=== PATIENT | male | born 1995 | race Caucasian/White ===

== ENCOUNTER 2018-04-25 16:30 | Observation (INO) | payer BC ==
--- NOTE | 2018-08-15 10:14 | PDHPUP ---
History & Physical Update H&P update statement: This history and physical update is based on an assessment of the patient which was completed after admission or registration (within 24 hours), but prior to the surgery/procedure. H&P update: H&P reviewed & patient examined, no change in patient's condition since H&P completed
[2018-08-16] MEDS ORDERED: BACITRACIN ZINC 0.5 OZ OINTTUBE TP ONE (07:44)
[2018-08-16] MEDS ORDERED: BUPIVACAINE 0.25% 30 ML SDV ONE (07:44)
[2018-08-16] MEDS ORDERED: LIDO/EPI 1% **Not for Epidural 20 ML MDV ONE (07:45)
[2018-08-16] MEDS ORDERED: OXYMETAZOLINE 30 ML NASAL SPRAY ONE (07:45)
[2018-08-16] MEDS ORDERED: ceFAZolin 2 GM/DEXTROSE 100 ML IV ONE (07:53)
[2018-08-16] MEDS ORDERED: DEXAMETHASONE 10 MG/ML VIAL IVP ONE ×2 (07:53→08:00)
[2018-08-16] MEDS ORDERED: LIDOCAINE 1% 2 ML INJ ID PRN (07:54)
[2018-08-16] MEDS ORDERED: LR 1,000 ML IV ONE (07:54)
[2018-08-16] MEDS ORDERED: DEXAMETHASONE 4 MG/ML VIAL IVP ONE (09:03)
[2018-08-16] MEDS ORDERED: MIDAZOLAM 2 MG/2 ML VIAL IVP ONE (09:06)
--- NOTE | 2018-08-16 09:06 | PDANEPAE ---
ANE History of Present Illness tonsillar hypertrophy and inferior turbinate hypertrophy ANE Past Medical History - Cardiovascular History Hx Hypertension: No Hx Arrhythmias: No Hx Chest Pain: No Hx Coronary Artery / Peripheral Vascular Disease: No Hx CHF / Valvular Disease: No Hx Palpitations: No - Pulmonary History Hx COPD: No Hx Asthma/Reactive Airway Disease: No Hx Recent Upper Respiratory Infection: No Hx Oxygen in Use at Home: No Hx Sleep Apnea: Yes Sleep Apnea Screening Result - Last Documented: Positive - Neurologic History Hx Cerebrovascular Accident: No Hx Seizures: No Hx Dementia: No - Endocrine History Hx Diabetes: No Hypothyroid: No Hyperthyroid: No Obesity: no - Renal History Hx Renal Disorders: No - Liver History Hx Hepatic Disorders: No - Neurological & Psychiatric Hx Hx Neurological and Psychiatric Disorders: No - Cancer History Hx Cancer: Yes 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 - Congenital Disorder History Hx Congenital Disorders: No - GI History Hx Gastrointestinal Disorders: No - Other Health History Other Health History: none - Chronic Pain History Chronic Pain: No - Surgical History Prior Surgeries: 15yrs old mediport ANE Review of Systems Review of systems is: negative Review of Systems: - Exercise capacity Exercise capacity: >=4 METS METS (RN): 6 METS ANE Patient History - Allergies Allergies/Adverse Reactions: pegaspargase Allergy (Verified 08/16/18 08:15) Itching - Home Medications Home medications: home medication list seen and reviewed Home Medications: NK [No Known Home Meds] 04/19/18 [Last Taken Unknown] - NPO status NPO Status: no food or drink >8 hours NPO Since - Liquids (Date): 08/15/18 NPO Since - Liquids (Time): 22:00 NPO Since - Solids (Date): 08/15/18 NPO Since - Solids (Time): 22:00 - Anes Hx Anes Hx: no prior problems - Smoking Hx Smoking Status: Light smoker - Family Anes Hx Family Hx Anesthesia Complications: none ANE Labs/Vital Signs - Vital Signs Vital Signs: reviewed preoperatively; see RN documention for details Blood Pressure: 109/66 Heart Rate: 70 Respiratory Rate: 16 O2 Sat (%): 99 Height: 190.5 cm Weight: 70.307 kg ANE Physical Exam - Airway Neck exam: FROM Mallampati Score: Class 2 Mouth exam: normal dental/mouth exam - Pulmonary Pulmonary: no respiratory distress, clear to auscultation - Cardiovascular Cardiovascular: regular rate and rhythym - ASA Status ASA Status: II ANE Anesthesia Plan Anesthesia Plan: general endotracheal anesthesia
[2018-08-16] MEDS ORDERED: MIDAZOLAM 2 MG/2 ML VIAL ONE (09:08)
[2018-08-16] MEDS ORDERED: PROPOFOL 200 MG/20 ML VIAL ONE ×2 (09:12)
[2018-08-16] MEDS ORDERED: fentaNYL 100 MCG/2 ML INJ ONE ×2 (09:12→12:00)
[2018-08-16] MEDS ORDERED: ONDANSETRON 4 MG/2 ML VIAL ONE (09:14)
[2018-08-16] MEDS ORDERED: ROCURONIUM 50 MG/5 ML VIAL ONE (09:14)
[2018-08-16] MEDS ORDERED: LIDOCAINE 2% 5 ML SDV ONE (09:15)
[2018-08-16] MEDS ORDERED: DEXAMETHASONE 4 MG/ML VIAL ONE ×2 (09:15)
[2018-08-16] MEDS ORDERED: SUGAMMADEX SODIUM 200 MG/2 ML VIAL IVP ONE (10:16)
--- NOTE | 2018-08-16 10:27 | POSTOPPROG ---
Post Op Note Date of Operation: 08/16/18 Surgeon: Arlen Seay Anesthesiologist: Jessie Anesthesia: GET(General Endotracheal) Pre-op Diagnosis: aaron tonsil and turbinate hypertrophy Post-op Diagnosis: same Procedure: tonsillectomy Bilat smrit Inf/Abcess present in the surg proc area at time of surgery?: No Depth: Superfical (Skin SQ) EBL: 50-100 Total fluids administered: 900 Complications: none Bowel Protocol: N/A Clean Closure Performed: N/A Specimen(s): tonsils
--- NOTE | 2018-08-16 10:31 | PDHPUP ---
History & Physical Update H&P update statement: This history and physical update is based on an assessment of the patient which was completed after admission or registration (within 24 hours), but prior to the surgery/procedure. H&P update: H&P reviewed & patient examined
[2018-08-16] MEDS ORDERED: ACETAMINOPHEN 160 MG/5 ML UDCUP PO PRN (10:32)
[2018-08-16] MEDS ORDERED: ONDANSETRON 4 MG/2 ML VIAL IVP PRN ×2 (10:32→11:58)
[2018-08-16] MEDS ORDERED: SODIUM CL NASAL 45 ML BTL EACHNARE PRN (10:37)
--- NOTE | 2018-08-16 11:31 | POSTANESTH ---
Post Anesthetic Evaluation Cardiovascular Status: Normal, Stable Respiratory Status: Normal, Stable Level of Consciousness/Mental Status: Can Participate in Eval Pain Control: Adequate, Prn Tx Ordered Nausea/Vomiting Control: Adequate, Prn Tx Ordered Complications Possibly Related to Anesthesia: None Noted
[2018-08-16] MEDS ORDERED: HYDROmorphONE/DILAUDID 1 MG/ML INJ IVP PRN (11:58)
[2018-08-16] MEDS ORDERED: oxyCODONE IR 5 MG TAB PO PRN (11:58)
[2018-08-16] MEDS ORDERED: METOCLOPRAMIDE 10 MG/2 ML VIAL IVP PRN (11:58)
[2018-08-16] MEDS ORDERED: PHENYLEPHRINE HCL 100 MCG/ML SYR IVP PRN (11:58)
[2018-08-16] MEDS ORDERED: NALOXONE HCL 0.4 MG/ML INJ IVP PRN (11:58)
[2018-08-16] MEDS ORDERED: LR 500 ML IV PRN (11:58)
[2018-08-16] MEDS ORDERED: DEXAMETHASONE 4 MG/ML VIAL IVP PRN (11:58)
[2018-08-16] MEDS ORDERED: MEPERIDINE 25 MG/0.5 ML AMP IVP PRN (11:58)
[2018-08-16] MEDS ORDERED: ALBUTEROL 3 ML DEYVIAL IH PRN (11:58)
[2018-08-16] MEDS ORDERED: PROMETHAZINE HCL 25 MG/ML INJ IVP PRN (11:58)
[2018-08-16] MEDS ORDERED: ACETAMINOPHEN 500 MG TAB PO PRN (11:58)
[2018-08-16] MEDS: fentaNYL 100 MCG/2 ML INJ IVP PRN ×2 (12:02→12:14)
[2018-08-16] MEDS: HYDROCOD/APAP 7.5/325 IN 15ML UDCUP PO PRN ×3 (13:13→21:30)
--- NOTE | 2018-08-16 17:34 | SOAPPROG ---
SOAP Progress Note Assessment/Plan: Assessment: S/p tonsillectomy and SMRIT Plan: Pt doing well. Plan for d/c in the am. 08/16/18 17:31 Subjective: Pt s/p tonsillectomy and SMRIT today. Some throat pain. Tolerating PO Objective: Vital Signs Temp Pulse Resp BP Pulse Ox 36.6 C 77 16 138/81 H 94 08/16/18 15:25 08/16/18 15:25 08/16/18 15:25 08/16/18 15:25 08/16/18 15:25 08/15/18 08/16/18 08/17/18 05:59 05:59 05:59 Intake Total 1600 Output Total 450 Balance 1150 NAD, afebrile, resting in bed. - Pending Discharge Pending Discharge Within 24 Hours: Yes Pending Discharge Date: 08/17/18 Pending Discharge Time: 11:00 ICD10 Worksheet Patient Problems: Problems Problem Status Onset Hx of tonsillectomy Acute - ICD10 Problem Qualifiers (1) Hx of tonsillectomy
[2018-08-16] MEDS: SODIUM CL NASAL 45 ML BTL EACHNARE SCH ×6 (19:55→23:44)
[2018-08-17] MEDS: SODIUM CL NASAL 45 ML BTL EACHNARE SCH ×9 (01:16→10:38)
[2018-08-17] MEDS: HYDROCOD/APAP 7.5/325 IN 15ML UDCUP PO PRN (07:30)
--- NOTE | 2018-08-17 08:00 | PDDCSUM ---
Discharge Summary Discharge Summary: Pt POD #1 s/p tonsillectomy and SMRT. doing well. pain controlled post op care reviewed follow up 1 week in office ok for discharge
[2018-08-17 08:09] VITALS: BP 120/63
--- NOTE | 2018-08-18 11:34 | GOP ---
[f rep st] OPERATIVE REPORT DATE OF OPERATION: 08/16/2018 SURGEON: Jozef Seay MD ANESTHESIA: General endotracheal. PREOPERATIVE DIAGNOSIS: 1. Chronic tonsillitis. 2. Nasal airway obstruction. POSTOPERATIVE DIAGNOSIS: 1. Chronic tonsillitis. 2. Nasal airway obstruction. PROCEDURE PERFORMED: Tonsillectomy with submucosal resection of the inferior turbinates and inferior turbinate outfracture. FINDINGS: 1. Tonsillar hypertrophy treated by tonsillectomy. 2. Inferior turbinate hypertrophy treated by submucosal resection of the inferior turbinates with in ferior turbinate outfracture. ESTIMATED BLOOD LOSS: 50 mL DESCRIPTION OF PROCEDURE: Patient was placed on the operating table in supine position. After induc tion of adequate general endotracheal anesthesia, the nose was addressed. Pledgets soaked in 0.5% Ne o-Synephrine were inserted into the right and the left side of the nose. Once this had been complete d, the anterior turbinates were hydro-infiltrated utilizing 1% lidocaine with 1:100,000 parts epineph rine. Once this was completed, the attention was directed to tonsillectomy. A shoulder roll was orville jose luis beneath the patient's shoulders to extend the neck. Once sterile draping had been completed, the Mason-Vance mouth gag was inserted over the previously placed endotracheal tube with care given to ma intaining the tube at the correct depth. The Mason-Vance mouth gag was then opened, revealing enlarg ed tonsils. The right tonsil was grasped and retracted medially. It was then circumferentially diss ected using the needle-tip Bovie electrocautery. Hemostasis was obtained throughout this dissection by use of the Bovie electrocautery. Once right tonsillectomy had been completed, the left tonsil was grasped in a manner identical to the right, retracted medially and then excised using a needle-tip B ovie electrocautery. Hemostasis was then obtained throughout the left tonsillar fossa by use of Bovi e electrocautery. In addition, a larger bleeder in the lower tonsillar fossa was suture ligated with [id number] 3-0 chromic suture. Once this was completed, the Mason-Vance mouth gag was let down for approximately 1 minute and then reopened. No further bleeding was noted. The right and left to nsillar fossa were then infiltrated with a solution of 0.25% Marcaine, a total of 13 mL were injected with care given to the avoidance of intravascular injection. At this point, the Mason-Vance mouth g ag was again let down for approximately 1 minute. No further bleeding was noted from the injection s ites. An orogastric tube was passed. The patient's gastric contents were aspirated and then attenti on was redirected to the nasal cavity. Initially, the right inferior turbinate was addressed, the [employer] polyp shaver utilizing a 2 mm blade was used to perform submucosal resection of the inferior turb inates. Initially a stab incision was created along its anterior aspect and then the elevator portio n of the turbinate blade was used to elevate the soft tissues off the underlying turbinate bone. Sub mucosal resection of the turbinate then proceeded. Numerous passes were made along the long axis of the inferior turbinate, markedly reducing its submucosal mass. Once this had been completed, the res idual turbinate tissue was outfractured using a blunt elevator. An identical procedure was then perf ormed on the left for submucosal resection of the inferior turbinates proceeded, followed by turbinat e outfracture. At this point, rolled Telfa was inserted into the right and left side of the nose to act as nasal packing. This was attached to a 2-0 suture so that the nurses in the recovery room coul d remove it. Once this was completed and the procedure was terminated, a drip pad was applied. The patient was then awakened and transferred to the postanesthesia recovery area in stable condition. FLUID REPLACEMENT: 900 mL. COMPLICATIONS: None. /[id number]/MODL
== END 2018-08-17 10:41 | disposition home or self-care (01) ==
LOC: F3E 08-16 07:37
PROVIDERS: ADMIT Otolaryngology; ATTEND Otolaryngology
PROC: 0CTPXZZ Resection of Tonsils, External Approach (ICD-10-PCS; principal; 2018-08-16 09:00)
PROC: 09TL4ZZ Resection of Nasal Turbinate, Percutaneous Endoscopic Approach (ICD-10-PCS; principal; 2018-08-16 09:00)
DX: J35.01 Chronic tonsillitis (principal); J34.3 Hypertrophy of nasal turbinates; G47.33 Obstructive sleep apnea (adult) (pediatric)
CPT/HCPCS: 30140; 42826; G0378; J0690; J1100; J2250; J2405; J2704; J3010